=== PATIENT | male | born 1955 | race Caucasian/White ===

== ENCOUNTER → 2023-07-29 14:34 | Outpatient (REF) | payer MEDICARE, OTHER, SELFPAY | LOC: RAD 14:34 | PROVIDERS: ATTENDING PHYSICIAN Specialist | DX: S05.50XA Penetrating wound with foreign body of unspecified eyeball, initial encounter (principal) | CPT/HCPCS: 70030 ==

== ENCOUNTER → 2023-09-08 09:30 | Outpatient (REF) | payer MEDICARE, OTHER, SELFPAY | LOC: MRI 3T 09:30 | PROVIDERS: ATTENDING PHYSICIAN Specialist; FAMILY PHYSICIAN Family Medicine | DX: R97.20 Elevated prostate specific antigen [PSA] (principal) | CPT/HCPCS: 72197; A9575 ==

== ENCOUNTER 2023-09-27 06:08 | Day surgery (SDC) | payer MEDICARE, OTHER, SELFPAY ==
[2023-09-27 06:24] VITALS: BP 151/74; BMI 28.5
[2023-09-27 06:43] LABS: Glucose - Point of Care 122 mg/dl (70-99)
[2023-09-27] MEDS: NEOMYCIN ENEMA 1 BOTTLE RECTAL (06:44)
[2023-09-27] MEDS: NORMOSOL-R 1000 IV (06:44)
[2023-09-27 08:00] VITALS: BP 151/74
[2023-09-27 08:22] LABS: Glucose - Point of Care 123 mg/dl (70-99)
[2023-09-27 08:58] VITALS: BP 141/77
[2023-09-27 09:00] VITALS: BP 140/85
[2023-09-27 09:20] VITALS: BP 144/76
== END 2023-09-27 09:24 | disposition home or self-care (01) ==
LOC: SDS 06:08
PROVIDERS: ATTENDING PHYSICIAN Specialist
DX: R97.20 Elevated prostate specific antigen [PSA] (principal); N42.89 Other specified disorders of prostate; C61 Malignant neoplasm of prostate
CPT/HCPCS: 55706; 76998; 82962; 88305; 93005

== ENCOUNTER → 2023-10-18 13:21 | Day surgery (SDC) | payer MEDICARE, OTHER, SELFPAY ==
[2023-10-18 14:54] LABS: Hematocrit 41.4 % (39.0-52.0); Mean Corp Hgb Conc. 33.8 g/dL (33.0-37.0); Mean Corpuscular Hgb 29.9 pg (27.0-31.0); Mean Corpuscular Volume 88.3 fL (80.0-94.0); Platelet Count 246 10^3/uL (130-400); Red Blood Cell Count 4.69 10^6/uL (4.70-6.10); Red Cell Dist. Width 13.7 % (11.5-14.5); White Blood Cell Count 6.8 10^3/uL (4.8-10.8)
[2023-10-18 15:05] LABS: INR 1.04; PT 13.4 Sec (11.4-14.6)
[2023-10-18 15:06] LABS: APTT 29.7 Sec (23.4-35.0)
[2023-10-18 15:13] LABS: Blood Urea Nitrogen 24 mg/dl (9-20); Calcium 9.9 mg/dl (8.4-10.2); Carbon Dioxide 30 mmol/L (22-30); Chloride 103 mmol/L (98-107); Glucose 99 mg/dl (70-99); Potassium 5.1 mmol/L (3.5-5.1); Sodium 143 mmol/L (135-145); eGFR > 60.00
== END ==
LOC: SDSPAT 13:21
PROVIDERS: ATTENDING PHYSICIAN Specialist; FAMILY PHYSICIAN Family Medicine
DX: Z01.812 Encounter for preprocedural laboratory examination (principal); C61 Malignant neoplasm of prostate
CPT/HCPCS: 85027; 36415; 80048; 85610; 85730

== ENCOUNTER 2023-10-26 06:03 | Day surgery (SDC) | payer MEDICARE, OTHER, SELFPAY ==
[2023-10-18 13:55] VITALS: BMI 28.9
--- NOTE | 2023-10-21 09:44 | VNURNOTE ---
Home Health Liaison spoke with patient over the phone to discuss [facility] nurse visits, schedule and homebound status. Patient is agreeable and understands that visits at home will be 2-3 x per week to assess herrera and teach herrera care, medical
management. Patient is aware that [facility] will contact them for start of care in 1-2 days after discharge from . Patient's surgery scheduled for 10/25 SDS. He tells this author he will stay overnight. Plan for [facility] start of care visit on 10/27. [facility]
referral completed in Care Port, [facility]N Intake notified.
[2023-10-26] VITALS (13 sets, daily range): BP systolic 105–154; BP diastolic 58–80; BMI 26.9
[2023-10-26] MEDS: NEOMYCIN ENEMA 1 BOTTLE RECTAL (06:39)
[2023-10-26] MEDS: NORMOSOL-R/PLASMALYTE-A 1000 IV ×2 (06:45→13:11)
[2023-10-26 06:56] LABS: Glucose - Point of Care 112 mg/dl (70-99)
[2023-10-26 12:26] LABS: Glucose - Point of Care 209 mg/dl (70-99)
[2023-10-26] MEDS: DILAUDID 0.5 MG IV (13:26)
--- NOTE | 2023-10-26 14:30 | PTCARENOTE ---
Pt received from the PACU via bed. Transport was w/o incident. Pt is AAOx3, HRR, lungs are clear, resp. easy. Pt's VSS, Pt is afebrile. Pt denies pain or nausea at this time. Pt's abd with Lap sites covered with guaze and tegaderm. Scant drainage
noted, stopped. No current bleeding noted. Pt's herrera draining pale pink urine, will monitor for color, clarity and poss. clots. Pt and Pt's instructed on plan of care, and signs and symptoms to report to the nursing staff. Pt and
verbalized understanding of instructions. Call berry is within reach.
[2023-10-26] MEDS: TORADOL 15 MG IV ×2 (17:03→21:11)
[2023-10-26] MEDS: COLACE 100 MG PO (17:09)
[2023-10-26] MEDS: CLARITIN 10 MG PO (17:09)
[2023-10-26] MEDS: COZAAR 100 MG PO (17:09)
[2023-10-26 17:54] LABS: Glucose - Point of Care 217 mg/dl (70-99)
[2023-10-26] MEDS: GLUCOPHAGE XR EXTENDED RELEASE 1000 MG PO (18:27)
[2023-10-26] MEDS: POLYSPORIN/DOUBLE ANTIBIOTIC 1 APPLIC TOPICAL (21:11)
[2023-10-26 21:37] LABS: Glucose - Point of Care 207 mg/dl (70-99)
[2023-10-27] MEDS: NORMOSOL-R/PLASMALYTE-A 1000 IV (01:09)
[2023-10-27 02:42] VITALS: BP 119/63
[2023-10-27] MEDS: TORADOL 15 MG IV (04:49)
[2023-10-27] MEDS: TYLENOL 650 MG PO (06:03)
[2023-10-27 07:21] LABS: Hematocrit 36.1 % (39.0-52.0); Hemoglobin 12.4 g/dL (13.0-18.0); Mean Corp Hgb Conc. 34.3 g/dL (33.0-37.0); Mean Corpuscular Hgb 31.2 pg (27.0-31.0); Mean Corpuscular Volume 90.9 fL (80.0-94.0); Mean Platelet Volume 11.8 fL (7.4-10.4); Platelet Count 198 10^3/uL (130-400); Red Blood Cell Count 3.97 10^6/uL (4.70-6.10); Red Cell Dist. Width 13.9 % (11.5-14.5); White Blood Cell Count 11.4 10^3/uL (4.8-10.8)
[2023-10-27 07:29] LABS: Blood Urea Nitrogen 22 mg/dl (9-20); Calcium 8.3 mg/dl (8.4-10.2); Carbon Dioxide 22 mmol/L (22-30); Chloride 104 mmol/L (98-107); Estimated Creatinine Clearance 65 ml/min; Glucose 105 mg/dl (70-99); Potassium 4.6 mmol/L (3.5-5.1); Sodium 141 mmol/L (135-145); eGFR 59.84
[2023-10-27 07:41] VITALS: BP 126/67
[2023-10-27 07:46] LABS: Glucose - Point of Care 112 mg/dl (70-99)
[2023-10-27] MEDS: POLYSPORIN/DOUBLE ANTIBIOTIC 1 APPLIC TOPICAL (08:03)
[2023-10-27] MEDS: COLACE 100 MG PO (08:03)
--- NOTE | 2023-10-27 10:38 | CM ---
CM following re: discharge planning.
Reviewed pt's chart, met with pt and pt's spouse at bedside.
Pt is a 68 year old male, admitted with SDC status and primary dx of Prostate Cancer, POD#1 s/p Robotic Radical Prostatectomy.
Pt reports he lives with spouse 2SH, 2 steps to enter, has 2 supportive children. Pt described himself as independent in al, areas PRA, has a cane and a walker, does not use them.
CM consulted to assist with arranging [facility]N services upon the discharge for [facility] care. Pt is aware, preferred [facility]. [facility], spoke to [facility] liaison and she confirmed the pt is scheduled for visit tomorrow.
Discharge order noted. Pt is aware. No IMM needed, pt has SDC status.
PCP: Jonh Krishna
Pharmacy: [facility] [place].
Please fax discharge instructions to VN at [phone]
D/C plan: home with [facility] and family support. Spouse to transport.
[2023-10-27] MEDS: TORADOL IV (11:03)
[2023-10-27 11:19] VITALS: BP 129/56
[2023-10-27] MEDS: COLACE PO (11:26)
--- NOTE | 2023-10-27 11:33 | W.PN.URO.CBU ---
Today's Communication / Plan
-
discharge
Assessment / Plan
-
stable
Diagnosis
-
Date of Service: October 27, 2023
-
Patient Diagnosis: prostate cancer s/p robotic radical prostatectomy
Post Op Day: 1
Subjective
-
expected abdominal/pelvis discomfort: 'Tylenol is enough'
Objective
-
Vital Signs
Temp Pulse Resp BP Pulse Ox
98.5 F 64 16 129/56 95
10/27/23 11:19 10/27/23 11:19 10/27/23 11:19 10/27/23 11:19 10/27/23 11:19
Intake and Output
10/26/23 10/27/23 10/28/23
06:59 06:59 06:59
Intake Total 1680 / 1680
Output Total 1050 / 1050
Balance 630 / 630
Intake:
Oral fluids 480 / 480
IV fluids (Total) 1200 / 1200
Normosal 300 / 300
Output:
Urine, Vitale 1050 / 1050
Laboratory Results
10/27/23 05:57
10/27/23 05:57
Physical Exam
-
General - well developed, well nourished, no acute distress
Genitalia - yellow urine via [facility]
Skin - warm & dry with no rash
Neuro - AOx3, no motor deficits
Extremities - no clubbing, no cyanosis, no edema
Dressings - clean, dry, intact
== END 2023-10-27 11:29 | disposition home or self-care (01) ==
LOC: SDS 06:03
PROVIDERS: ATTENDING PHYSICIAN Specialist; FAMILY PHYSICIAN Family Medicine
DX: C61 Malignant neoplasm of prostate (principal)
CPT/HCPCS: 55866; 38571; 88304; 88305; 88309; 88332; 80048; 82962; 85027; 88331

== ENCOUNTER 2024-09-24 08:46 | Day surgery (SDC) | payer MEDICARE, OTHER, SELFPAY ==
[2024-09-24] VITALS (9 sets, daily range): BP systolic 119–158; BP diastolic 57–77; BMI 29.7; BMI 28.8
[2024-09-24] MEDS: LOW STRENGTH ASPIRIN 324 MG PO (09:10)
[2024-09-24 09:33] LABS: Glucose - Point of Care 128 mg/dl (70-99)
[2024-09-24] MEDS: NSS 297 ML IV (10:10)
--- NOTE | 2024-09-24 11:47 | ITS.CL.CATH ---
Senior Asset Manager - Catheterization
Cardiac Catheterization
Procedure Report:
LEFT HEART CATHETERIZATION
Date of Procedure: September 24, 2024
Referring: Yanet Vázquez PA-C and Stew Ricks.
PROCEDURES:
1. Left heart catheterization, coronary angiogram.
2. Moderate sedation.
INDICATION: Exertional chest discomfort
ACCESS: Right radial artery, 6Fr. sheath, under US guidance.
HEMODYNAMICS : (mmHg)
AO (s/d) : 140/75
LVEDP : 30
No significant gradient across the aortic valve to suggest aortic stenosis.
CORONARY FINDINGS
Dominance: Right
Left Main Trunk (LMT): Large caliber vessel that gives rise to the LAD and LCx branches and is free of angiographic disease.
Left Anterior Descending Artery (LAD): Large caliber vessel that gives off 2 major diagonal branches as it courses along the anterior inter-ventricular groove before wrapping around the cardiac apex. There is mild diffuse atherosclerotic plaque.
Left Circumflex Artery (LCx): Large caliber vessel that gives off 2major obtuse marginal (OM) branches as it courses along the atrio-ventricular (AV) groove. There is mild diffuse atherosclerotic plaque.
Right Coronary Artery (RCA): Large caliber dominant vessel that gives rise to the posterior descending artery (RPDA) and postero-lateral ventricular (RPLV) branches distally. There is mild diffuse atherosclerotic plaque.
SEDATION: 27 minutes of procedural sedation was utilized. IV Midazolam and IV Fentanyl were administered. An independent medical educator was present to assist with and help manage the patient's level of consciousness and physiologic status.
RADIATION SUMMARY: Fluoro Time (min): 1.5, Dose (mGy): 224.08, DAP (Gy.cm2) : 14.94
Closure Device: There were no immediate intra-procedural complications. The sheath was pulled in the agriculture laboratory technician and a vascular-band applied to the right wrist for radial artery hemostasis using the patent hemostasis technique.
CONCLUSIONS
1. No obstructive coronary artery disease.
2. Elevated LVEDP at 30 mmHg.
RECOMMENDATIONS
1. Wean radial band per protocol. Monitor right hand perfusion and for bleeding from the radial site following removal of the vascular-band following trans-radial access.
2. Continue aggressive medical therapy and risk factor modification for secondary CAD prevention.
3. Hydrate with normal saline to mitigate the risk of contrast-induced acute kidney injury.
4. Follow-up with outpatient front office assistant.
Copy to: Yanet Vázquez PA-C and Stew Ricks.
Soumya Dawn MD, FACC, [facility]
== END 2024-09-24 13:57 | disposition home or self-care (01) ==
LOC: CATH 08:46
PROVIDERS: ATTENDING PHYSICIAN Internal Medicine Interventional Cardiology; FAMILY PHYSICIAN Family Medicine; OTHER PHYSICIAN Nuclear Medicine Nuclear Cardiology
DX: I25.10 Atherosclerotic heart disease of native coronary artery without angina pectoris (principal); R07.89 Other chest pain; I10 Essential (primary) hypertension; E11.9 Type 2 diabetes mellitus without complications; Z79.899 Other long term (current) drug therapy; Z79.84 Long term (current) use of oral hypoglycemic drugs
CPT/HCPCS: 99152; 99153; 82962; 93458; C1894; Q9967